=== PATIENT | female | born 1930 | race Caucasian/White ===

== ENCOUNTER → 2017-10-22 | Outpatient (CLI) | payer MEDICARE, OTHER ==
[~2017-10-22] MED LIST: ADVAIR HFA 230M12 GM INH; ALDACTONE25 MG PO; ALDACTONE50 MG PO; ALENDRONATE SOD10 MG PO; ALLOPURINOL 10100 M1 PO; ALLOPURINOL 10100 M2 PO; ALLOPURINOL 10100 M3 PO; ALLOPURINOL 30300 M3; AMPICILLIN PO; APAP500 PO; ARTIFICIALS TEA30 ML OP; ASPIR 8181 M1 PO; ASPIR 8181 MG PO; ASPIRIN EC81 M1 PO; AUGMENTIN 875875 MG PO; BACTRIM DS TAB1 EACH; BENADRYL25 MG PO; BISACODYL5 MG PO; CEFUROXIME250 MG PO; CEPHALEXIN 250250 M1 PO; CIPRO250 M1; CIPRO250 M1 PO; CIPROFLOXACIN500 M3; COLCHICINE 0.60.6 M1; COUMADIN 2 MG TA2 M1 PO; COUMADIN 2.5MG2.5 M1 PO; COUMADIN 5 MG TA5 M1; COUMADIN 5 MG TA5 M1 PO; D3 DOTS2000 UNIT PO; DIPHENHYDRAM50 MG/M2 IV PUSH; DULCOLAX5 MG PO; DUONEB 2.5-0.5 M3 ML INH; DURAGESIC1 EAC2 TRANSDERM; ELIQUIS2.5 MG PO; ENDOCET 5-3251 EACH PO; ENOXAPARIN100 MG/11 SUBQ; FENTANYL PA25 MCG/HR TRANSDERM; FISH OIL 1,0001 EAC8 PO; FISH OIL 1,001000 M2 PO; FLAGYL500 MG; FLOMAX0.4 MG PO; FLUZONE 2045 MCG/011; FOLIC ACID1 MG PO; FUROSEMIDE 20 M20 MG PO; GABAPENTIN 100100 MG PO; HYDROCODON-ACE1 EA11 PO; HYDROCODON-ACE1 EAC7 PO; KLOR-CON 1010 MEQ PO; LASIX 20 MG TAB20 MG PO; LASIX 40 MG TAB40 M2 IV PUSH; LISINOPRIL; LISINOPRIL-HCT1 EAC1 PO; LOPRESSOR100 M1 IV PUSH; MEDROL DOSPAK21 TA1; MEGESTROL40 MG/1 M1 PO; METHOTREXATE 22.5 MG PO; MILK OF MA2400 MG/10 PO; MILLIPRED DP5 M1 PO; MIRALAX17 GM PO; MSL20MG/ML IV PUSH; NAPROXEN375 MG PO; NITROFURANTOIN25 MG PO; NORCO 5-325 TA1 EACH PO; NORMAL SALINE FL5 ML IV PUSH; NOVOLOG100 UNIT/1 SUBQ; Naproxen PO; ONDANSETRON HCL4 M2 IV PUSH; OXYCODONE HCL 55 MG PO; OXYCONTIN10 M1 PO; PATANASE30.5 GM; PATANASE30.5 GM INH; PERCOCET 5-3251 EACH; PERCOCET 5-3251 EACH PO; PERCOCET PO; PNEUMOVAX25 MCG/0.5; PREDNISONE; PREDNISONE 1 MG1 M1; PREDNISONE 10 M10 MG PO; PREDNISONE 20 M20 MG PO; PREDNISONE 5 MG5 M1 PO; PREDNISONE 5 MG5 MG PO; PRINIVIL5 MG PO; PROAIR HFA8.5 GM INH; PROTONIX40 M1 IV PUSH; PROTONIX40 M1 PO; PROVIGIL 200 M200 M1 PO; ROXICODONE5 M2 PO; SENNA-DOCUSATE1 EACH PO; SENOKOT-S1 TA1 PO; SERTRALINE HCL50 MG PO; SIMVASTATIN10 MG PO; SODIUM CHLORID500 M1 IV; SODIUM CHLORIDE50 M3 IV; SOLU-MEDRO40 MG/1 M2 IV PUSH; TPN ELECTROLYTE20 M1 IV; TRAMADOL 50 MG50 MG; TRAMADOL 50 MG50 MG PO; VENTOLIN HFA 1818 GM INH; VITAMIN B-12500 MCG PO; VITAMIN B12 PO; VITAMIN D-32000 UNIT PO; WOMAN'S LAXATIVE5 M1 PO; XANAX 0.25 MG0.25 MG PO; XARELTO10 MG PO; ZOCOR; ZOCOR 10 MG TAB10 MG PO; ZOSYN 3.373.375 GM/1 IV; [UNRECOGNIZED DRUG - OTHER] TP
[2017-10-22 11:22] LABS: CALCIUM 9.5 mg/dL (8.5-10.1); CREATININE 1.7 mg/dL (0.6-1.3); POTASSIUM 4.1 mmol/L (3.5-5.1)
[2017-10-22 11:28] LABS: % SATURATION 26 % (20-39); IRON 84 ug/dL (50-175)
[2017-10-22 11:35] LABS: ALBUMIN 3.9 g/dL (3.4-5.0); MAGNESIUM 1.9 mg/dL (1.8-2.4); TOTAL BILIRUBIN 0.5 mg/dL (<0.1-1.0); TOTAL PROTEIN 7.4 g/dL (6.4-8.2)
== END ==
LOC: M.LAB 10:35
PROVIDERS: Internal Medicine
DX: I12.9 Hypertensive chronic kidney disease with stage 1 through stage 4 chronic kidney disease, or unspecified chronic kidney disease (principal); N18.3 Chronic kidney disease, stage 3 (moderate); N39.0 Urinary tract infection, site not specified; I25.10 Atherosclerotic heart disease of native coronary artery without angina pectoris; E66.9 Obesity, unspecified; E78.5 Hyperlipidemia, unspecified; E43 Unspecified severe protein-calorie malnutrition

== ENCOUNTER → 2018-03-10 | Outpatient (CLI) | payer MEDICARE, OTHER | LOC: M.CT 10:09 → M.RAD 10:09 | DX: N18.3 Chronic kidney disease, stage 3 (moderate) (principal); K57.30 Diverticulosis of large intestine without perforation or abscess without bleeding; N20.0 Calculus of kidney; I70.90 Unspecified atherosclerosis; I49.5 Sick sinus syndrome; M12.30 Palindromic rheumatism, unspecified site; R63.5 Abnormal weight gain ==

== ENCOUNTER → 2019-10-26 | Outpatient (CLI) | payer MEDICARE, OTHER ==
--- NOTE | 2019-10-26 16:29 | CARDNUC ---
[place] [address] CARDIAC NUCLEAR IMAGING REPORT Name: ANDREAS STALLINGS Room: [facility]#: [id number] Admission: 10/26/19 Attend Phys: Mian Ewing, Discharge: Date of : 32 Date of Service: 10/26/19 1629 Report #: [id number] THIS REPORT FOR: //name// APPROVED REPORT Study performed: 10/26/2019 07:30:00 Indication: Dyspnea Patient Location: Out-Patient Stress Tech: Meli Quiroz Stress Nurse: Noreen Loo RN Ht: 5 ft 4 in Wt: 165 lbs BSA: 1.80 m2 BMI: 28.31 Medical History Medical History: paf, sss, pacemaker, hyperlipidemia, hypertension Medications: eliquis, lasix, klor-con Allergies: esomeprazole, iodine,omeprazole, shell-fish Cardiac Risk Factors: hyperlipidemia, hypertension, family hx Previous Cardiac Procedures: pacemaker Exercise History: Sedentary Resting Data Rest SPECT myocardial perfusion imaging was performed in supine position 30 minutes following the intravenous injection of 11.6 mCi of Tc-99m Sestamibi. Time of rest injection: 08:00 The images were gated to evaluate regional wall motion and calculate left ventricular ejection fraction. Administration Route: IV Administration Site: Left Arm Pharmacologic Stress Pharmacologic stress test was performed by injecting Regadenoson 0.4 mg IV push over 10-15 seconds immediately followed by the intravenous injection of 35.3 mCi of Tc-99m Sestamibi. Time of stress injection: 09:20 Administration Route: IV Administration Site: Left Arm Heart Rate at time of stress injection: 75 bpm. Gated Stress SPECT was performed 45 minutes [place] [address] CARDIAC NUCLEAR IMAGING REPORT Name: ANDREAS STALLINGS Room: [facility]#: [id number] Admission: 10/26/19 Attend Phys: Mian Ewing, Discharge: Date of : 31 Date of Service: 10/26/19 1629 Report #: [id number] The images were gated to evaluate regional wall motion and calculate left ventricular ejection fraction. Stress Test Details Stress Test: Pharmacologic stress testing performed using 0.4 mg of regadenoson per 5 mL given IV over 10 seconds. Reason for pharmacologic stress test: physical limitation. HR Max Heart Rate (APMHR): 133 bpm Resting HR: 66 bpm Target HR (85% APMHR): 113 bpm Max HR Achieved: 90 bpm % of APMHR: 67 Recovery HR: 79 bpm BP Resting BP: 127/80 mmHg Max BP: 198/79 mmHg Recovery BP: 192/78 mmHg ECG Resting ECG: Sinus Rhythm with ventricular pacing Stress ECG: Sinus Rhythm with ventricular pacing ST Change: None Recovery ECG: Sinus Rhythm with ventricular pacing Recovery ST Change: None Clinical Reason for Termination: Completed protocol Exercise duration: 0 min sec Exercise capacity: 1 METs The patient tolerated Lexiscan infusion without significant symptoms. Nurse Comments pt uses walker and cannot walk on treadmill Stress ECG Conclusion The baseline 12-lead EKG shows sinus rhythm with ventricular pacing. EKGs obtained during and post Lexiscan infusion showed sinus rhythm with ventricular pacing. Study Quality Study: Good Artifact: No artifact Study Data At rest, the left ventricular ejection fraction was 74%.. [place] [address] CARDIAC NUCLEAR IMAGING REPORT Name: ANDREAS STALLINGS Room: [facility]#: [id number] Admission: 10/26/19 Attend Phys: Mian Ewing, Discharge: Date of : 31 Date of Service: 10/26/19 1629 Report #: [id number] Post stress, the left ventricular ejection was 85%.. TID = 0.90. Perfusion Perfusion images obtained at rest and post Lexiscan stress showed uniform uptake of the radioisotope throughout the myocardium without defect. Wall Motion Normal left ventricular wall motion. Nuclear Conclusion ECG Findings: non-diagnostic Clinical Findings: negative for ischemia Nuclear Findings: negative for ischemia Exercise Capacity: not assessed Left Ventricular Function: normal Risk Study: low Perfusion images showed no defect to suggest infarct or ischemia. Left ventricular systolic function appears normal on gated studies. This is a low risk study. <Conclusion> The baseline 12-lead EKG shows sinus rhythm with ventricular pacing. EKGs obtained during and post Lexiscan infusion showed sinus rhythm with ventricular pacing. <ELECTRONICALLY SIGNED> By: Mian Ewing MD, FACC 10/26/19 1629 1629 1629 Mian Ewing MD, FACC /INF
== END ==
LOC: M.NUC 10-14 16:36
DX: R06.09 Other forms of dyspnea (principal); E78.5 Hyperlipidemia, unspecified; I10 Essential (primary) hypertension; Z95.0 Presence of cardiac pacemaker; Z79.899 Other long term (current) drug therapy; Z88.8 Allergy status to other drugs, medicaments and biological substances

== ENCOUNTER → 2019-10-28 | Outpatient (CLI) | payer MEDICARE, OTHER | LOC: M.ULTRA 10-24 13:14 | DX: I65.23 Occlusion and stenosis of bilateral carotid arteries (principal); E78.2 Mixed hyperlipidemia; I10 Essential (primary) hypertension; I48.0 Paroxysmal atrial fibrillation; M48.061 Spinal stenosis, lumbar region without neurogenic claudication; I70.0 Atherosclerosis of aorta; M41.85 Other forms of scoliosis, thoracolumbar region; M25.78 Osteophyte, vertebrae; M51.36 Other intervertebral disc degeneration, lumbar region ==

== ENCOUNTER → 2019-11-14 | Outpatient (CLI) | payer MEDICARE, OTHER | LOC: M.CT 11-01 10:14 | DX: I65.23 Occlusion and stenosis of bilateral carotid arteries (principal); M51.86 Other intervertebral disc disorders, lumbar region; M41.86 Other forms of scoliosis, lumbar region; M48.061 Spinal stenosis, lumbar region without neurogenic claudication; Z98.1 Arthrodesis status ==

== ENCOUNTER 2020-01-20 08:24 | Inpatient (IN) | payer MEDICARE, OTHER ==
[~2020-01-20] VITALS: Ht 162.6 cm; Wt 75.7 kg
--- NOTE | ~2020-01-20 | OP ---
[facility] [address] [place] [address] OPERATIVE REPORT Name: CHANDRAKANTANDREAS Red Room: [address] IN .R.#: [id number] Admission: 01/20/20 Attend Phys: Gabby Elise Discharge: Date of : 31 Report #: [id number] THIS REPORT FOR: //name// cc: Mike Guidry MD, David L. MD ~ THIS REPORT FOR: //name// CC: Mike Jeong DATE OF SERVICE: 01/20/2020 PREOPERATIVE DIAGNOSIS: Severe left internal carotid artery stenosis. POSTOPERATIVE DIAGNOSIS: Severe left internal carotid artery stenosis. PROCEDURES: 1. Left carotid endarterectomy with patch angioplasty. 2. Intraoperative ultrasound with interpretation. SURGEON: Umair Luna MD CHECK CLERK: AMY Summers. COMPLICATIONS: None. ESTIMATED BLOOD LOSS: 100 mL. SPECIMEN: Plaque. ANESTHESIA: General. INDICATIONS FOR PROCEDURE: The patient is a very pleasant 89-year-old white female who has severe stenosis of her left internal carotid artery. We have recommended carotid endarterectomy at this time. Informed consent was obtained from the patient with risks including but not limited to bleeding, infection, need for further surgery, pain, , heart attack, stroke, cranial nerve injury. The patient understood these risks and was agreeable to proceed. DESCRIPTION OF PROCEDURE: The patient was taken to the OR and placed in supine position. After adequate general anesthesia was initiated, timeout was performed. The patient's left neck and chest were prepped and draped in usual sterile fashion. The patient received appropriate perioperative antibiotics. The patient was systemically heparinized throughout the critical portions of the procedure. I created a transverse incision in [place] [address] OPERATIVE REPORT Name: ANDREAS STALLINGS Room: [address] IN [facility].#: [id number] Admission: 01/20/20 Attend Phys: Gabby Elise Discharge: Date of : 31 Report #: [id number] and blunt dissections were carried down along the anterior border of the sternocleidomastoid muscle. I divided the facial vein. I entered the carotid sheath. Dissection was very difficult as the patient had a stiff neck and would not turn. This made her carotid bifurcation artificially high. I carefully dissected out the common carotid artery as well as branches of internal and external carotid artery. I was able to pull the bifurcation down into the incision to work on it safely. I was able to dissect out to soft internal carotid artery, that was clampable. She had severe plaque throughout. I heparinized the patient at this point in time. I injected the bulb with 1% lidocaine. I then clamped the carotid artery. I created a longitudinal arteriotomy from the common carotid artery onto the internal carotid artery. I placed a 12 shunt without difficulty. I performed endarterectomy in standard fashion using a [place] elevator and a pair of pickups. I performed eversion endarterectomy of the external carotid artery. I did have to tack down the flap leading edge leading into the internal carotid artery using 7-0 Prolene suture. I then used a bovine pericardial patch and a running 6-0 Prolene suture to close my arteriotomy. I removed the shunt prior to finishing closing the vessel. Upon completion, I had adequate hemostasis and excellent blood flow into the internal and external carotid arteries. I performed intraoperative ultrasound with following findings. FINDINGS ON ULTRASOUND: 1. Normal waveform velocity identified in the common and internal carotid arteries. 2. Patent flow identified in external carotid artery on color flow imaging. 3. No flaps or defects identified on downey-scale imaging. I corrected the heparin with protamine. I controlled bleeding as needed with electrocautery, ties, clips and Anni. I irrigated the wound with antibiotic saline, closed the wound in multiple layers using 2-0 Vicryl, 3-0 Vicryl and Monocryl for the skin. Incision was dressed with Dermabond. The patient tolerated the procedure well and was taken alert and awake to recovery room in good condition, neurologically intact without evidence of TIA or stroke. By: 1252 [id number] Luna MD /michel
[~2020-01-20 08:24] MED LIST changes: +BACTRIM 400-801 EACH PO; +TYLENOL325 MG PO
[2020-01-20 09:27] VITALS: BP 142/65
[2020-01-20 09:33] LABS: HEMATOCRIT 41.9 % (37.0-47.0); HEMOGLOBIN 13.9 gm/dL (12.0-15.0); MCH 29.9 pg (26.0-34.0); MCHC 33.2 g/dL (28.0-37.0); MPV 8.4 fl. (7.2-11.1); RBC 4.66 mil/uL (4.20-5.00); WBC 8.9 thou/uL (4.0-11.0)
[2020-01-20 09:43] LABS: CALCIUM 9.1 mg/dL (8.5-10.1); CREATININE 1.6 mg/dL (0.6-1.3); POTASSIUM 3.5 mmol/L (3.5-5.1)
--- NOTE | 2020-01-20 16:49 | EKG ---
[place] [address] ELECTROCARDIOGRAM REPORT Name: ANDREAS STALLINGS Room: [place] [address] ADM IN M.R.#: [id number] Admission: 01/20/20 Attend Phys: Jerome Jeong Discharge: Date of : 31 Date of Service: 01/20/20 0851 Report #: [id number] THIS REPORT FOR: //name// [facility] Test Date: 2020-01-20 Test Time: 08:51:03 Pat Name: ANDREAS CHANDRAKANT Department: Room: [place] [address] Gender: F Jig Builder Helper: : 1930 Requested By: Umair Luna Order Number: [id number] Rhonda MD: Kaz Agrawal Measurements Intervals [place] Rate: 63 P: 51 [place]: 161 QRS: -41 QRSD: 126 T: 27 QT: 439 QTc: 450 Interpretive Statements Sinus rhythm Nonspecific IVCD with LAD Left ventricular hypertrophy Anterior Q waves, possibly due to LVH Nonspecific T abnormalities, lateral leads Compared to ECG 11/09/2015 21:45:11 Intraventricular conduction delay now present Left ventricular hypertrophy now present Q waves now present T-wave abnormality now present Electronically Signed On 01-20-2020 16:48:35 CDT by Kaz Agrawal [email or web address] <ELECTRONICALLY SIGNED> By: Kaz Agrawal MD, [facility] 01/20/20 1648 0851 Kaz Agrawal MD, [facility] /EPI
[2020-01-20 20:46] VITALS: BP 117/97
[2020-01-20 21:00] VITALS: BP 159/70
[2020-01-20 22:00] VITALS: BP 155/62
[2020-01-20 23:00] VITALS: BP 177/60
[2020-01-21] VITALS (14 sets, daily range): BP systolic 101–157; BP diastolic 45–74
[2020-01-21 04:40] LABS: HEMATOCRIT 38.8 % (37.0-47.0); MCH 29.8 pg (26.0-34.0); MCHC 33.5 g/dL (28.0-37.0); MCV 88.9 fL (80.0-100.0); MPV 7.5 fl. (7.2-11.1); RBC 4.36 mil/uL (4.20-5.00); RDW-CV 14.9 % (10.5-14.5); WBC 14.1 thou/uL (4.0-11.0)
[2020-01-21 05:00] LABS: CALCIUM 8.4 mg/dL (8.5-10.1); CREATININE 1.2 mg/dL (0.6-1.3); POTASSIUM 4.4 mmol/L (3.5-5.1)
--- NOTE | 2020-01-21 14:13 | NUR ---
PT DISCHARGED HOME. COPY OF DISCHARGE INSTRUCTIONS INCLUDING POST SURGICAL INSTRUCTIONS TO PT WITH EXPLAINATION. IV ACCESS X2 REMOVED. PT TAKEN PER WHEELCHAIR TO HER SISTERS' PRIVATE VEHICLE.
== END 2020-01-21 14:39 | disposition home or self-care (01) | DRG 38 ==
LOC: M.TBA 08:24 → M.ICU 08:24 → M.SUR 09:40 → M.PRE 11:15 → EDSTATUS 14:04 → M.PRE 14:06 → M.ICU 18:17
PROVIDERS: Surgery Vascular Surgery; ADMIT Internal Medicine
PROC: 03CL0ZZ Extirpation of Matter from Left Internal Carotid Artery, Open Approach (ICD-10-PCS; principal; 2020-01-20)
PROC: 03UL0KZ Supplement Left Internal Carotid Artery with Nonautologous Tissue Substitute, Open Approach (ICD-10-PCS; principal; 2020-01-20)
DX: I65.22 Occlusion and stenosis of left carotid artery (principal); N39.0 Urinary tract infection, site not specified; N17.9 Acute kidney failure, unspecified; Z79.899 Other long term (current) drug therapy; E86.0 Dehydration; E78.5 Hyperlipidemia, unspecified; I10 Essential (primary) hypertension; M81.0 Age-related osteoporosis without current pathological fracture; I49.5 Sick sinus syndrome; M19.90 Unspecified osteoarthritis, unspecified site; I25.10 Atherosclerotic heart disease of native coronary artery without angina pectoris; R42 Dizziness and giddiness; I27.20 Pulmonary hypertension, unspecified; Z96.653 Presence of artificial knee joint, bilateral; M54.5 Low back pain; G89.29 Other chronic pain; Z86.010 Personal history of colon polyps; Z95.0 Presence of cardiac pacemaker; Z98.49 Cataract extraction status, unspecified eye; Z93.3 Colostomy status; Z86.718 Personal history of other venous thrombosis and embolism; Z79.01 Long term (current) use of anticoagulants; Z88.8 Allergy status to other drugs, medicaments and biological substances; Z91.041 Radiographic dye allergy status; Z91.013 Allergy to seafood; Z79.2 Long term (current) use of antibiotics

== ENCOUNTER → 2020-10-26 | Outpatient (CLI) | payer MEDICARE, OTHER | LOC: M.RAD 11:46 | PROVIDERS: ATTEND Internal Medicine | DX: R06.00 Dyspnea, unspecified (principal) ==

== ENCOUNTER → 2021-01-15 | Outpatient (CLI) | payer MEDICARE, OTHER ==
[~2021-01-15] VITALS: Ht 162.6 cm; Wt 65.8 kg
[2021-01-15] VITALS (12 sets, daily range): BP systolic 89–127; BP diastolic 43–84
[~2021-01-15] MED LIST changes: +BACTRIM DS TAB1 EAC1 PO; +ELIQUIS5 MG PO; +VITAMIN D3-ALO1 EACH PO
[2021-01-15 13:22] LABS: HEMATOCRIT 43.4 % (37.0-47.0); HEMOGLOBIN 14.2 gm/dL (12.0-15.0); MCH 29.6 pg (26.0-34.0); MCHC 32.6 g/dL (28.0-37.0); MPV 7.4 fl. (7.2-11.1); RBC 4.77 mil/uL (4.20-5.00); RDW-CV 15.4 % (10.5-14.5); WBC 11.6 thou/uL (4.0-11.0)
[2021-01-15 13:28] LABS: CALCIUM 9.9 mg/dL (8.5-10.1); CREATININE 1.5 mg/dL (0.6-1.3); POTASSIUM 4.3 mmol/L (3.5-5.1)
[2021-01-15 13:32] LABS: APTT 25.8 Seconds (25.0-31.3); PROTIME 10.4 Seconds (9.20-11.50)
[2021-01-15 13:33] LABS: ALBUMIN 3.4 g/dL (3.4-5.0); TOTAL BILIRUBIN 0.4 mg/dL (<0.1-1.0); TOTAL PROTEIN 7.4 g/dL (6.4-8.2)
--- NOTE | 2021-01-15 17:55 | EKG ---
[place] [address] ELECTROCARDIOGRAM REPORT Name: ANDREAS STALLINGS Room: [facility]#: [id number] Admission: 01/15/21 Attend Phys: Mian Ewing, Discharge: Date of : 31 Date of Service: 01/15/21 1333 Report #: [id number] THIS REPORT FOR: //name// [facility] Test Date: 2021-01-15 Test Time: 13:33:43 Pat Name: ANDREAS STALLINGS Department: Room: Gender: F Hspt Tutor: : 1930 Requested By: Mian Ewing Order Number: [id number] Reading MD: Mian Ewing Measurements Intervals [place] Rate: 65 P: 24 SD: 163 QRS: -14 QRSD: 78 T: 10 QT: 373 QTc: 388 Interpretive Statements Sinus rhythm Low voltage, precordial leads Abnormal R-wave progression, early transition Compared to ECG 01/20/2020 08:51:03 Low QRS voltage now present Intraventricular conduction delay no longer present Left ventricular hypertrophy no longer present Q waves no longer present T-wave abnormality no longer present Electronically Signed On 01-15-2021 17:55:28 SALES OFFICE ADMINISTRATOR by Mian Ewing [email or web address] <ELECTRONICALLY SIGNED> By: Mian Ewing MD, [facility] 01/15/21 1755 1333 1333 Mian Ewing MD, [facility] /EPI
--- NOTE | 2021-01-15 17:56 | EKG ---
[place] [address] ELECTROCARDIOGRAM REPORT Name: ANDREAS STALLINGS Room: [facility]#: [id number] Admission: 01/15/21 Attend Phys: Mian Ewing, Discharge: Date of : 31 Date of Service: 01/15/21 1543 Report #: [id number] THIS REPORT FOR: //name// [facility] Test Date: 2021-01-15 Test Time: 15:43:42 Pat Name: ANDREAS CHANDRAKANT Department: Room: Gender: F Logistics Coordinator: JHONEYGUSTAVO : 1930 Requested By: Mian Ewing Order Number: [id number] Reading MD: Mian Ewing Measurements Intervals [place] Rate: 141 P: [place]: QRS: 7 QRSD: 74 T: 25 QT: 304 QTc: 466 Interpretive Statements Atrial fibrillation with rapid V-rate Abnormal R-wave progression, early transition ST depression, probably rate related Compared to ECG 01/15/2021 13:33:43 ST (T wave) deviation now present Sinus rhythm no longer present Electronically Signed On 01-15-2021 17:56:33 FENCE SUPERVISOR by Mian Ewing [email or web address] <ELECTRONICALLY SIGNED> By: Mian Ewing MD, FACC 01/15/21 1756 1543 1543 Mian Ewing MD, FACC /EPI
--- NOTE | 2021-01-22 12:52 | CARD ---
[address] [address] CARDIAC CATH REPORT Name: ANDREAS STALLINGS Room: [facility]#: [id number] Admission: 01/15/21 Attend Phys: Mian Ewing MD Discharge: Date of : 31 Report #: [id number] THIS REPORT FOR: cc: Star Briones MD, Meng MD ~ Mian Ewing MD [facility] APPROVED REPORT Study performed: 01/15/2021 13:58:48 Patient Status: Out-Patient Room #: Event Personnel: Michael Colby RTR Monitor, Rina Santamaria RN RN, Jacqueline Berg RTR Scrub, Mian Ewing Linen Sorter Exam: Insertion of Dual Chamber Permanent Pacemaker The patient is a 89 year-old female with a history of . Conscious Sedation Start time: 1444 End Time: 1458 Fentanyl 25 mcg Versed 1 mg Implanted Devices: Medtronic, model number W3 DR 01, serial number [id number] dual-chamber pulse generator. Explanted Devices: Guidant Altrua was 60, model number S603, serial #[id number] dual-chamber pulse generator. Procedure The patient underwent informed consent. We discussed the details of the procedure including the risks, which include, but not limited to bleeding, infection, vascular damage, cardiac perforation, and pneumothorax. She understood these risks and was willing to proceed. As such, she was brought to the EP/Cardiac Catheterization laboratory in a fasting and sedated state and prepped and draped in a The patient underwent conscious sedation, with no related complications. The patient was brought to the EP/Cardiac Catheterization laboratory and the left chest and shoulder were prepped and draped in a sterile manner. During this case, Fluoroscopy and no contrast were used for imaging. IV conscious sedation was used throughout procedure with appropriate monitoring and was performed in the presence of a registered nurse who was an independent trained [place] [address] CARDIAC CATH REPORT Name: ANDREAS STALLINGS Room: [facility]#: [id number] Admission: 01/15/21 Attend Phys: Mian Ewing MD Discharge: Date of : 31 Report #: [id number] performing the procedure. The left subclavian region was infiltrated with 2% Lidocaine with Epinephrine subcutaneous anesthesia. A transverse incision was made in the left upper chest cavity. Capturing and sensing thresholds were verified. Electrode Parameters P Wave: 2.1 mV R Wave: 5.4 mV Ventricular Threshold: 1.2 V at 0.60 ms. Atrial Resistance: 342 ohms Ventricular Resistance: 475 ohms Generator Change The generator change was then secured using sutures. The subcutaneous pocket was irrigated with ancef antibiotic solution.The lead was attached to the appropriate receptacle on the new pulse generator and setscrews firmly tightened to insure adequate contact and stability. The lead and pulse generator were placed into the subcutaneous pocket. Sharp and sponge counts were confirmed to be correct. At this time the pocket was closed subcutaneously with a 2.0 Vicryl and the skin was closed with a 4.0 Vicryl. The operative site was dressed in sterile fashion with steri strips and the patient was transferred to the floor in stable condition. Complications The patient tolerated the procedure well and there were no complications associated with the procedure. Findings Specimens Removed: No Conclusion 1. Dual-chamber pacemaker generator at elective replacement. 2. Successful replacement of dual-chamber pacemaker generator. Recommendations 1. Follow-up site check in 1 week. 2. Follow-up device interrogation 1 to 2 months. <ELECTRONICALLY SIGNED> By: Mian Ewing MD, FACC 01/22/21 1252 1252 1252Michaepiedad Ewing MD, FACC /INF
== END | disposition home or self-care (01) ==
LOC: M.CL 12:50
PROVIDERS: ATTEND Internal Medicine Cardiovascular Disease
DX: Z45.010 Encounter for checking and testing of cardiac pacemaker pulse generator [battery] (principal); I49.5 Sick sinus syndrome; I25.10 Atherosclerotic heart disease of native coronary artery without angina pectoris; E78.5 Hyperlipidemia, unspecified; M19.90 Unspecified osteoarthritis, unspecified site; R42 Dizziness and giddiness; M54.5 Low back pain; G89.29 Other chronic pain; N39.0 Urinary tract infection, site not specified; Z98.890 Other specified postprocedural states; Z79.899 Other long term (current) drug therapy; Z86.718 Personal history of other venous thrombosis and embolism; Z79.01 Long term (current) use of anticoagulants; Z96.653 Presence of artificial knee joint, bilateral; Z88.8 Allergy status to other drugs, medicaments and biological substances; Z91.041 Radiographic dye allergy status

== ENCOUNTER 2021-02-22 11:04 | Inpatient (IN) | payer MEDICARE, OTHER ==
[~2021-02-22] VITALS: Ht 162.6 cm; Wt 84.6 kg
[2021-02-22 11:16] VITALS: BP 124/77
[2021-02-22] MEDS ORDERED: SYNTHROID25 MC1 PO (11:30)
[2021-02-22] MEDS ORDERED: RAYOS5 MG PO (11:30)
[2021-02-22 13:44] LABS: ABSOLUTE BASOPHILS 0.1 thou/uL (0.0-0.2); ABSOLUTE EOSINOPHILS 0.1 thou/uL (0.0-0.7); ABSOLUTE LYMPHOCYTES 1.7 thou/uL (0.8-5.3); ABSOLUTE MONOCYTES 1.1 thou/uL (0.0-1.2); ABSOLUTE NEUTROPHILS 7.6 thou/uL (1.6-8.1); EOSINOPHILS 1.2 %; HEMATOCRIT 39.8 % (37.0-47.0); HEMOGLOBIN 12.9 gm/dL (12.0-15.0); MCH 29.4 pg (26.0-34.0); MCHC 32.5 g/dL (28.0-37.0); MCV 90.4 fL (80.0-100.0); MPV 7.4 fl. (7.2-11.1); NUCLEATED RBCS 0 /100WBC; PLATELET COUNT* 300 thou/uL (150-400); POLYS 71.8 %; RDW-CV 15.1 % (10.5-14.5); WBC 10.6 thou/uL (4.0-11.0)
[2021-02-22 13:55] LABS: CREATININE 1.4 mg/dL (0.6-1.3)
[2021-02-22 13:59] LABS: TOTAL BILIRUBIN 0.5 mg/dL (<0.1-1.0); TOTAL PROTEIN 7.6 g/dL (6.4-8.2)
[2021-02-22 16:00] VITALS: BP 114/54
[2021-02-22 16:20] LABS: URINE BILIRUBIN NEGATIVE (Negative); URINE BLOOD NEGATIVE (Negative); URINE CLARITY CLEAR; URINE COLOR YELLOW; URINE GLUCOSE-RANDOM NEGATIVE (Negative); URINE KETONES NEGATIVE (Negative); URINE LEUKOCYTES-REFLEX TRACE (Negative); URINE NITRITE-REFLEX NEGATIVE (Negative); URINE PROTEIN NEGATIVE (Negative); URINE UROBILINOGEN 0.2 E.U./dl (0.2-1.0)
[2021-02-22 16:32] LABS: BACTERIA-REFLEX 1-9 Few /HPF (None Seen); CASTS None Seen /LPF (None Seen); SQUAMOUS 0-3 Few /LPF (0-3); URINE RBC 0-2 Rare /HPF (0-2); URINE WBC-REFLEX 0-5 Rare /HPF (0-5)
[2021-02-22 16:33] LABS: CRYSTALS None Seen /LPF (None Seen)
[2021-02-22 17:15] VITALS: BP 126/80
[2021-02-22 20:00] VITALS: BP 112/50
[2021-02-23 00:15] VITALS: BP 106/43
[2021-02-23 04:09] VITALS: BP 112/60
[2021-02-23 08:00] VITALS: BP 138/75
[2021-02-23 12:16] VITALS: BP 133/73
--- NOTE | 2021-02-23 12:57 | CON ---
[address] [address] CONSULTATION Name: ANDREAS STALLINGS Room: [address] IN M.R.#: [id number] Admission: 02/22/21 Attend Phys: Amie St MD Discharge: Date of : 31 Report #: [id number] THIS REPORT FOR: cc: Star Briones MD, Meng MD [place], Roxane S. DO ~ DATE OF SERVICE: 02/23/2021 HISTORY OF PRESENT ILLNESS: The patient is an 89-year-old female who when she woke up Thursday morning noticed that her left lower extremity was weak. It was difficult for her to get out of bed. She had to ask her sister for help. In addition to the weakness in the leg, she noticed tingling across her abdomen and had pain in the leg as well. The pain in the leg is from the left hip down into the leg. She states there has been perhaps some mild improvement in her symptoms since they began. The patient has been inactive for at least 1 month and has been doing quite a bit of sitting in a chair. Reviewing the note from Dr. St, it states that she said to Dr. St that she has had paresthesias in both lower extremities for a long period of time, the left is worse than the right. She also has tingling in her hands which she admitted to me as well. She stated that 3 years ago, she was diagnosed with carpal tunnel syndrome. PAST MEDICAL HISTORY: Sick sinus syndrome, hyperlipidemia, arthritis, coronary artery disease, stress incontinence, pulmonary hypertension, DVT, plantar calcaneal spur, diverticulitis, compression fracture in thoracic and lumbar spine, chronic low back pain, small cell cancer of the head. PAST SURGICAL HISTORY: Pacemaker, bilateral knee replacements, colostomy, kyphoplasty x 3, Mohs procedure, cataract extraction. MEDICATIONS AT HOME: Eliquis 5 mg b.i.d., Bactrim 1 tablet b.i.d., prednisone at bedtime, levothyroxine 25 mcg daily, B12 500 mcg twice a day, potassium 20 mEq daily, furosemide 20 mg daily, gabapentin 200 mg at bedtime, vitamin D daily, Flomax 0.4 mg daily, and Tylenol p.r.n. ALLERGIES: IODINE AND SHRIMP. PHYSICAL EXAMINATION: VITAL SIGNS: Temperature 36.4, pulse rate 72, respiratory rate 18, blood pressure 138/75, bedside pulse oximetry 92%. NEUROLOGIC: Cranial nerves 2-12 are grossly intact. Motor exam demonstrates proximal upper extremity weakness and in the lower extremities, the patient has generalized weakness. She can just barely bend her knees[place] [address] CONSULTATION Name: ANDREAS STALLINGS Room: [address] IN M.R.#: [id number] Admission: 02/22/21 Attend Phys: Amie St MD Discharge: Date of : 31 Report #: [id number] symmetrical weakness in both lower extremities. Reflexes are absent in the upper and lower extremities. Plantar responses are mute. Coordination demonstrates no evidence of dysmetria. This is difficult to do because she has bilateral shoulder pain. Sensory exam demonstrates decreased light touch to about the hips. LABORATORY DATA: Hematology, white blood cell count 10.6, hemoglobin 12.9, hematocrit 39.8, MCV 90.4, platelet count 300,000. Urinalysis, trace leukocyte esterase. Chemistry: Sodium 138, potassium 4, chloride 102, carbon dioxide 27, BUN 24, creatinine 1.4, glucose 111. Liver functions normal. B12 is over 3000. TSH 0.952. IMAGING STUDIES: CT head unremarkable with the exception of mild atrophic changes and nonspecific white matter disease. CT lumbar spine shows severe spinal stenosis at L3-L4. CT of the pelvis unremarkable. IMPRESSION: This patient already has severe spinal stenosis at L3-L4. Given her history of kyphoplasty, I am ordering a CT scan of the thoracic spine as I do not know if she can have an MRI of the thoracic spine with her pacemaker and the reason for this is because she stated that she had paresthesias of the trunk and so I think looking above the level of the lumbar spine needs to be done. Now whether or not this patient is any kind of surgical candidate is a different story, but I do think this requires further investigation. The patient may also have an underlying peripheral neuropathy. She has a longstanding history of tingling of her hands and might benefit as an outpatient from an EMG of one arm and leg. We may also need to do a CT scan of the cervical spine depending on what we find in the thoracic spine. The patient has already had a B12 level, so B12 deficiency is not an issue here and in fact whatever supplement she is taking with B vitamin that she should stop taking it because her level is 3000. I thank you for your kind referral of the patient and we will continue to follow her with you. <ELECTRONICALLY SIGNED> By: Saira Bueno DO 02/23/21 1257 0920 1007Saira Bueno DO /nt
[2021-02-23 16:27] VITALS: BP 121/61
[2021-02-23 20:00] VITALS: BP 122/50
[2021-02-24 00:13] VITALS: BP 122/57
[2021-02-24 04:20] LABS: HEMOGLOBIN 11.8 gm/dL (12.0-15.0); MCH 28.9 pg (26.0-34.0); MCV 90.2 fL (80.0-100.0); MPV 7.9 fl. (7.2-11.1); RBC 4.1 mil/uL (4.20-5.00); WBC 12.1 thou/uL (4.0-11.0)
[2021-02-24 04:26] LABS: CALCIUM 9.2 mg/dL (8.5-10.1); CREATININE 1.3 mg/dL (0.6-1.3); POTASSIUM 4.3 mmol/L (3.5-5.1)
[2021-02-24 05:03] VITALS: BP 119/59
[2021-02-24 08:00] VITALS: BP 129/72
[2021-02-24 11:00] VITALS: BP 138/76
--- NOTE | 2021-02-24 12:25 | EKG ---
[place] [address] ELECTROCARDIOGRAM REPORT Name: ANDREAS STALLINGS Room: [address] ADM IN M.R.#: [id number] Admission: 02/22/21 Attend Phys: Amie St, Discharge: Date of : 31 Date of Service: 02/22/21 1414 Report #: [id number] THIS REPORT FOR: //name// [facility] ED Test Date: 2021-02-22 Test Time: 14:14:55 Pat Name: ANDREAS STALLINGS Department: Room: [facility] Gender: F Sand Tester: JOANA : 1930 Requested By: Teresa Ingram Order Number: [id number] MD: Rashi Cooper Measurements Intervals [place] Rate: 71 P: 35 [place]: 173 QRS: 14 QRSD: 109 T: 40 QT: 417 QTc: 454 Interpretive Statements Sinus rhythm Low voltage, precordial leads Abnormal R-wave progression, early transition Minimal ST elevation, inferior leads Compared to ECG 01/15/2021 15:43:42 Low QRS voltage now present Atrial fibrillation no longer present ST (T wave) deviation still present Electronically Signed On 02-24-2021 12:25:23 CDT by Rashi Cooper [email or web address] <ELECTRONICALLY SIGNED> By: Dusty Cooper MD, [facility] 02/24/21 1225 1414 1414 Dusty Cooper MD, [facility] /EPI
[2021-02-24 20:00] VITALS: BP 126/68
[2021-02-24 23:43] VITALS: BP 129/69
[2021-02-25 03:52] LABS: HEMATOCRIT 36.6 % (37.0-47.0); HEMOGLOBIN 11.7 gm/dL (12.0-15.0); MCV 90.7 fL (80.0-100.0); MPV 7.8 fl. (7.2-11.1); RBC 4.03 mil/uL (4.20-5.00); RDW-CV 14.9 % (10.5-14.5); WBC 15.1 thou/uL (4.0-11.0)
[2021-02-25 04:05] LABS: ALBUMIN 2.6 g/dL (3.4-5.0); CALCIUM 9.1 mg/dL (8.5-10.1); CREATININE 1.6 mg/dL (0.6-1.3); MAGNESIUM 2.1 mg/dL (1.8-2.4); POTASSIUM 4.5 mmol/L (3.5-5.1); TOTAL BILIRUBIN 0.2 mg/dL (<0.1-1.0); TOTAL PROTEIN 6.3 g/dL (6.4-8.2)
[2021-02-25 09:00] VITALS: BP 136/68
[2021-02-25 17:08] VITALS: BP 118/59
[2021-02-25 20:10] VITALS: BP 126/63
[2021-02-26 00:46] VITALS: BP 165/71
[2021-02-26 04:43] LABS: HEMATOCRIT 35.5 % (37.0-47.0); HEMOGLOBIN 11.6 gm/dL (12.0-15.0); MCH 29.2 pg (26.0-34.0); MCHC 32.7 g/dL (28.0-37.0); MCV 89.3 fL (80.0-100.0); MPV 7.7 fl. (7.2-11.1); RBC 3.97 mil/uL (4.20-5.00); RDW-CV 14.7 % (10.5-14.5); WBC 10.3 thou/uL (4.0-11.0)
[2021-02-26 04:50] LABS: ALBUMIN 2.5 g/dL (3.4-5.0); CALCIUM 8.8 mg/dL (8.5-10.1); CREATININE 1.5 mg/dL (0.6-1.3); MAGNESIUM 2.2 mg/dL (1.8-2.4); POTASSIUM 4.7 mmol/L (3.5-5.1); TOTAL BILIRUBIN 0.2 mg/dL (<0.1-1.0); TOTAL PROTEIN 6.1 g/dL (6.4-8.2)
[2021-02-26] MEDS ORDERED: GABAPENTIN 100100 MG PO (09:22)
[2021-02-26] MEDS ORDERED: HYDROCODON-ACE1 EAC7 PO (09:22)
[2021-02-26] MEDS ORDERED: PREDNISONE 10 M10 M1 PO (09:22)
[2021-02-26] MEDS ORDERED: VOLTAREN GEL 1100 G1 TOP (09:22)
[2021-02-26 09:47] VITALS: BP 165/71
== END 2021-02-26 18:38 | disposition home health service (06) | DRG 552 ==
LOC: M.ERS 11:04 → M.TBA-ER 14:39 → M.2W 14:39 → M.ORTHSURG 02-26 08:48
PROVIDERS: Physician Assistant; ADMIT Internal Medicine; ATTEND Internal Medicine
DX: M48.061 Spinal stenosis, lumbar region without neurogenic claudication (principal); N17.9 Acute kidney failure, unspecified; E44.1 Mild protein-calorie malnutrition; N39.0 Urinary tract infection, site not specified; M51.36 Other intervertebral disc degeneration, lumbar region; I49.5 Sick sinus syndrome; E78.5 Hyperlipidemia, unspecified; I25.10 Atherosclerotic heart disease of native coronary artery without angina pectoris; M16.10 Unilateral primary osteoarthritis, unspecified hip; D72.829 Elevated white blood cell count, unspecified; T38.0X5A Adverse effect of glucocorticoids and synthetic analogues, initial encounter; Z68.32 Body mass index [BMI] 32.0-32.9, adult; Z20.822 Contact with and (suspected) exposure to COVID-19; N18.30 Chronic kidney disease, stage 3 unspecified; Z96.653 Presence of artificial knee joint, bilateral; Y92.89 Other specified places as the place of occurrence of the external cause; Z86.718 Personal history of other venous thrombosis and embolism; Z95.0 Presence of cardiac pacemaker; Z79.01 Long term (current) use of anticoagulants; Z79.899 Other long term (current) drug therapy; Z88.8 Allergy status to other drugs, medicaments and biological substances; Z91.013 Allergy to seafood; Z90.49 Acquired absence of other specified parts of digestive tract; Z93.3 Colostomy status; Z98.49 Cataract extraction status, unspecified eye; Z85.828 Personal history of other malignant neoplasm of skin; Z86.73 Personal history of transient ischemic attack (TIA), and cerebral infarction without residual deficits

== ENCOUNTER 2021-04-05 18:40 | Emergency (ER) | payer MEDICARE, OTHER ==
[~2021-04-05] VITALS: Ht 162.6 cm; Wt 65.8 kg
[~2021-04-05 18:40] MED LIST changes: +PREDNISONE 10 M10 M1 PO; +RAYOS5 MG PO; +SYNTHROID25 MC1 PO; +VOLTAREN GEL 1100 G1 TOP
[2021-04-05 20:38] VITALS: BP 190/81
== END 2021-04-05 20:39 | disposition home or self-care (01) ==
LOC: M.ERS 18:40
DX: S16.1XXA Strain of muscle, fascia and tendon at neck level, initial encounter (principal); S80.01XA Contusion of right knee, initial encounter; S05.11XA Contusion of eyeball and orbital tissues, right eye, initial encounter; S09.8XXA Other specified injuries of head, initial encounter; E78.5 Hyperlipidemia, unspecified; I10 Essential (primary) hypertension; M19.90 Unspecified osteoarthritis, unspecified site; G89.29 Other chronic pain; I25.10 Atherosclerotic heart disease of native coronary artery without angina pectoris; Z86.718 Personal history of other venous thrombosis and embolism; Z96.653 Presence of artificial knee joint, bilateral; Z87.440 Personal history of urinary (tract) infections; W18.39XA Other fall on same level, initial encounter; Y93.89 Activity, other specified; Y92.481 Parking lot as the place of occurrence of the external cause; Y99.8 Other external cause status; M25.551 Pain in right hip

== ENCOUNTER → 2021-04-15 | Outpatient (CLI) | payer MEDICARE, OTHER ==
[2021-04-15 14:06] LABS: CALCIUM 9.3 mg/dL (8.5-10.1); CREATININE 1.5 mg/dL (0.6-1.3); POTASSIUM 3.9 mmol/L (3.5-5.1)
== END ==
LOC: M.LAB 13:32 → M.RAD 14:00 → M.LAB 14:00
PROVIDERS: ATTEND Orthopaedic Surgery Orthopaedic Surgery of the Spine
DX: M81.0 Age-related osteoporosis without current pathological fracture (principal); M48.02 Spinal stenosis, cervical region; Z87.81 Personal history of (healed) traumatic fracture

== ENCOUNTER → 2021-04-24 | Outpatient (CLI) | payer MEDICARE, OTHER | LOC: M.RAD 04-16 09:00 | PROVIDERS: ATTEND Orthopaedic Surgery Orthopaedic Surgery of the Spine | DX: M54.5 Low back pain (principal); M48.061 Spinal stenosis, lumbar region without neurogenic claudication; M51.36 Other intervertebral disc degeneration, lumbar region; M50.30 Other cervical disc degeneration, unspecified cervical region; Z98.890 Other specified postprocedural states; Z79.899 Other long term (current) drug therapy; Z91.040 Latex allergy status; Z79.01 Long term (current) use of anticoagulants ==

== ENCOUNTER → 2021-08-23 | Outpatient (CLI) | payer MEDICARE, OTHER ==
[~2021-08-23] MED LIST changes: +ASA81BEC PO; +MYRBETRIQ25 MG PO; +ROSUVASTATIN CA10 MG PO
== END ==
LOC: M.WC 10:00
PROVIDERS: ATTEND Family Medicine
DX: L89.892 Pressure ulcer of other site, stage 2 (principal); M70.971 Unspecified soft tissue disorder related to use, overuse and pressure, right ankle and foot; M21.611 Bunion of right foot; L84 Corns and callosities; E03.9 Hypothyroidism, unspecified; E78.5 Hyperlipidemia, unspecified; I25.10 Atherosclerotic heart disease of native coronary artery without angina pectoris; M48.00 Spinal stenosis, site unspecified; M06.9 Rheumatoid arthritis, unspecified; M81.0 Age-related osteoporosis without current pathological fracture; Z86.718 Personal history of other venous thrombosis and embolism; Z79.82 Long term (current) use of aspirin; Z79.899 Other long term (current) drug therapy; Z95.0 Presence of cardiac pacemaker

== ENCOUNTER 2021-08-24 12:02 | Inpatient (IN) | payer MEDICARE, OTHER ==
[~2021-08-24] VITALS: Ht 162.6 cm; Wt 78.9 kg
[~2021-08-24 12:02] MED LIST changes: -ASA81BEC PO; -MYRBETRIQ25 MG PO; -ROSUVASTATIN CA10 MG PO
[2021-08-24 12:05] VITALS: BP 145/81
[2021-08-24] MEDS ORDERED: ASA81BEC PO (12:12)
[2021-08-24] MEDS ORDERED: MYRBETRIQ25 MG PO (12:12)
[2021-08-24] MEDS ORDERED: ROSUVASTATIN CA10 MG PO (12:13)
[2021-08-24 13:11] LABS: ABSOLUTE BASOPHILS 0.1 thou/uL (0.0-0.2); ABSOLUTE EOSINOPHILS 0.2 thou/uL (0.0-0.7); ABSOLUTE LYMPHOCYTES 1.8 thou/uL (0.8-5.3); ABSOLUTE MONOCYTES 1.1 thou/uL (0.0-1.2); ABSOLUTE NEUTROPHILS 7.4 thou/uL (1.6-8.1); BASOPHILS 0.7 %; EOSINOPHILS 1.9 %; HEMATOCRIT 44.1 % (37.0-47.0); HEMOGLOBIN 14.1 gm/dL (12.0-15.0); MCH 29.3 pg (26.0-34.0); MCV 91.6 fL (80.0-100.0); MONOCYTES 10.2 %; MPV 7.1 fl. (7.2-11.1); NUCLEATED RBCS 0 /100WBC; PLATELET COUNT* 188 thou/uL (150-400); POLYS 70.2 %; RBC 4.81 mil/uL (4.20-5.00); RDW-CV 17.4 % (10.5-14.5); WBC 10.5 thou/uL (4.0-11.0)
[2021-08-24 13:34] LABS: CALCIUM 8.5 mg/dL (8.5-10.1); CREATININE 1.7 mg/dL (0.6-1.3)
[2021-08-24 13:44] LABS: ALBUMIN 2.7 g/dL (3.4-5.0); TOTAL PROTEIN 6.7 g/dL (6.4-8.2)
[2021-08-24 13:45] LABS: URINE BILIRUBIN NEGATIVE (Negative); URINE BLOOD 1+ (Negative); URINE CLARITY CLEAR; URINE COLOR YELLOW; URINE GLUCOSE-RANDOM NEGATIVE (Negative); URINE KETONES TRACE (Negative); URINE LEUKOCYTES-REFLEX TRACE (Negative); URINE NITRITE-REFLEX NEGATIVE (Negative); URINE PROTEIN 1+ (Negative); URINE SPECIFIC GRAVITY >= 1.030 (1.005-1.030); URINE UROBILINOGEN 0.2 E.U./dl (0.2-1.0)
[2021-08-24 14:01] LABS: SQUAMOUS 0-3 Few /LPF (0-3)
[2021-08-24 14:02] LABS: BACTERIA-REFLEX >30 Many /HPF (None Seen); CASTS None Seen /LPF (None Seen); CRYSTALS None Seen /LPF (None Seen); MUCUS None Seen strn/LPF (None Seen); URINE RBC 3-10 Few /HPF (0-2); URINE WBC-REFLEX 0-5 Rare /HPF (0-5)
[2021-08-24 16:45] VITALS: BP 137/65
[2021-08-24 17:45] VITALS: BP 147/66
[2021-08-24 19:45] VITALS: BP 144/60
--- NOTE | 2021-08-24 19:48 | NUR ---
PT WAS ADMITTED THROUGH THE ER FOR WEAKNESS, FALLS AND KIDNEY FAILURE. PT OREINTED TO ROOM AND STAFF. PT GIVEN HER DINNER TO EAT. PT COMPLAINED OF BEING COLD BUT FEVER WAS DOWN TO 99.3 PT HAS SALINE LOCK IN HER LAC WITH NORMAL SALINE INFUSING WELL. WILL CONTINUE TO MONITOR PLAN OF CARE.
--- NOTE | 2021-08-25 04:32 | NUR ---
PT A&O X 4. VSS ON RA. AFEBRILE. MEDS GIVEN ORDERED. C/O GENERALIZED PAIN, TYLENOL GIVEN. PT INCONTINENT OF BLADDER. COLOSTOMY BAG IN PLACE WITH MINIMUM OUTPUT. IVF INFUISING. BED ALARM ON FOR SAFETY. WILL CONTINUE TO MONITOR.
[2021-08-25 04:42] LABS: HEMATOCRIT 39.1 % (37.0-47.0); HEMOGLOBIN 12.9 gm/dL (12.0-15.0); MCH 29.2 pg (26.0-34.0); MCHC 33.1 g/dL (28.0-37.0); MCV 88.3 fL (80.0-100.0); MPV 7.3 fl. (7.2-11.1); RBC 4.43 mil/uL (4.20-5.00); RDW-CV 17.1 % (10.5-14.5); WBC 9.2 thou/uL (4.0-11.0)
[2021-08-25 05:09] LABS: CALCIUM 7.9 mg/dL (8.5-10.1); CREATININE 1.4 mg/dL (0.6-1.3); POTASSIUM 3.7 mmol/L (3.5-5.1)
[2021-08-25 08:20] VITALS: BP 135/64
--- NOTE | 2021-08-25 10:18 | EKG ---
[place] [address] ELECTROCARDIOGRAM REPORT Name: ANDREAS STALLINGS Room: [address] ADM [place] .R.#: [id number] Admission: 08/24/21 Attend Phys: Jerome Jeong Discharge: Date of : 32 Date of Service: 08/24/21 1217 Report #: [id number] THIS REPORT FOR: //name// [facility] ED Test Date: 2021-08-24 Test Time: 12:17:18 Pat Name: ANDREAS STALLINGS Department: Room: [facility] Gender: F Concrete Carpenter: HOLLY : 1930 Requested By: Luis Lake Order Number: [id number] MD: Mike Rawls Measurements Intervals [place] Rate: 99 P: 30 [place]: 153 QRS: -8 QRSD: 81 T: 41 QT: 328 QTc: 421 Interpretive Statements Sinus rhythm artifact noted Low voltage, precordial leads Abnormal R-wave progression, early transition Compared to ECG 02/22/2021 14:14:55 no change Electronically Signed On 08-25-2021 10:17:59 CDT by Mike Rawls [email or web address] <ELECTRONICALLY SIGNED> By: Mike Rawls MD, FACC 08/25/21 1017 16 16 Mike Rawls MD, FACC /EPI
[2021-08-25 15:50] VITALS: BP 112/54
--- NOTE | 2021-08-25 17:26 | NUR ---
PT ON BED REST. PT ON RM . PT HAS LT AC IV . PT HAS WOUND ON RT GREAT TOE, PICTURES TAKEN AND PUT IN CHART AND CLEAN DRESSING ON TOE. PT IS INNC. OF BLADDER. PT HAS ILEOSTOMY. PT STATES SHE ALREADY HAD FLU SHOT. PT HAS EATEN ALOT TODAY AND STATES SHE FEELS BETTER. PT IS SITTING IN BED WATCHING TV WITH CALL LIGHT IN REACH.
[2021-08-25 19:45] VITALS: BP 145/56
[2021-08-26 04:19] LABS: HEMATOCRIT 36.6 % (37.0-47.0); HEMOGLOBIN 12.2 gm/dL (12.0-15.0); MCH 29.7 pg (26.0-34.0); MCHC 33.4 g/dL (28.0-37.0); MCV 88.8 fL (80.0-100.0); RBC 4.12 mil/uL (4.20-5.00); WBC 8.7 thou/uL (4.0-11.0)
[2021-08-26 04:30] LABS: CALCIUM 7.9 mg/dL (8.5-10.1); CREATININE 1.4 mg/dL (0.6-1.3); POTASSIUM 3.8 mmol/L (3.5-5.1)
--- NOTE | 2021-08-26 04:35 | NUR ---
PT A&O X 4. ON RA. MEDS GIVEN ORDERED. NO C/O PAIN. PT INCONTINENT OF BLADDER AT TIMES. COLOSTOMY BAG IN PLACE, MODERATE OUTPUT. IVF INFUISING. CALL LIGHT WITHIN REACH. WILL CONTINUE TO MONITOR.
[2021-08-26 08:00] VITALS: BP 130/65
[2021-08-26 16:02] VITALS: BP 135/62
--- NOTE | 2021-08-26 16:15 | NUR ---
CM COMPLETED AN ASSESSMENT WITH PT AND HER SISTER WHO WAS AT BEDSIDE. PT AND SISTER LIVE TOGETHER. PT WAS INDEPENDENT WITH CARE AND ABLE TO AMBULATE WITH A WALKER PRIOR TO HOSPITALIZATION. PT STATED SHE WOKE UP ONE MORE AND COULDNT MOVE HER ARMS OR LEGS. PT HAS HX WITH [facility]. PT/OT EVALS NEEDED.
--- NOTE | 2021-08-26 17:45 | NUR ---
PATIENT RESTING IN BED, SISTER AT BEDSIDE, INVOLVED WITH CARES. ALERT AND ORIENTED X4. IV TO LEFT BURNS INFUSING NORMAL SALINE AT 100MLS/HR. COLOSTOMY TO LEFT LOWER ABDOMEN, DRAINING WITHOUT DIFFICULTIES. BED IN LOW/LOCKED POSITION. CALL LIGHT WITHIN REACH. BED ALARM ON. ALL QUESTIONS AND CONCERNS ADDRESSED.
[2021-08-26 20:56] VITALS: BP 130/63
--- NOTE | 2021-08-27 05:01 | NUR ---
I HAD TO WAKE PT UP TO ASSESS, SHE SLEPT THE REST OF THE SHIFT. NO REPORTS OF ANY PAIN OR DISCOMFORT. SHE WAS ABLE TO TAKE HER MEDS SCHEDULED. STILL WEAK, ALERT BUT FORGETFUL. INCONTINENT OF URINE, USES CALL LIGHT APPROPRIATELY. SKIN HAS GENERALIZED BRUISING IN UPPER EXTREMETIES BUT NO OPEN WOUNDS. COLOSTOMY INTACT, EMPTIED THIS SHIFT. IMPROVEMENT IN WEAKNESS AND LABS PENDING. WILL CONTINUE TO MONITOR.
[2021-08-27 06:30] LABS: HEMATOCRIT 33.2 % (37.0-47.0); HEMOGLOBIN 11.2 gm/dL (12.0-15.0); MCH 28.8 pg (26.0-34.0); MCHC 33.6 g/dL (28.0-37.0); MCV 85.9 fL (80.0-100.0); MPV 7.3 fl. (7.2-11.1); RBC 3.87 mil/uL (4.20-5.00); WBC 6.5 thou/uL (4.0-11.0)
[2021-08-27 06:34] LABS: CALCIUM 7.6 mg/dL (8.5-10.1); CREATININE 1.2 mg/dL (0.6-1.3); POTASSIUM 3.6 mmol/L (3.5-5.1)
[2021-08-27 08:00] VITALS: BP 113/53
--- NOTE | 2021-08-27 12:27 | NUR ---
Case and plan of care reviewed with physician each weekday during patient's length of stay. Plan is for Discharge today to [facility] facility. Spoke to Pt and sister she lives with in the room. Sister would like pt to stay in [place] if possible. Choices for SNF reviewed with both, [facility]. Left VM with [facility] for bed availability. Referral faxed. [phone]
[2021-08-27 15:58] VITALS: BP 157/64
--- NOTE | 2021-08-27 18:12 | NUR ---
pt dicharged with all belongings accompanied by her sister and the travel agency. vss afebrile. saline lock rem,karol from her gillespie. pt discharged to [facility] for senior care and therapy.
== END 2021-08-27 18:15 | DRG 689 ==
LOC: M.ERS 12:02 → M.TBA-ER 14:16 → M.3W 14:16
PROVIDERS: Emergency Medicine Emergency Medical Services; Family Medicine; ADMIT Internal Medicine; ATTEND Internal Medicine
DX: N39.0 Urinary tract infection, site not specified (principal); N17.0 Acute kidney failure with tubular necrosis; B96.89 Other specified bacterial agents as the cause of diseases classified elsewhere; E78.5 Hyperlipidemia, unspecified; I25.10 Atherosclerotic heart disease of native coronary artery without angina pectoris; Z86.718 Personal history of other venous thrombosis and embolism; Z79.01 Long term (current) use of anticoagulants; E66.9 Obesity, unspecified; Z68.29 Body mass index [BMI] 29.0-29.9, adult; M06.9 Rheumatoid arthritis, unspecified; Z88.8 Allergy status to other drugs, medicaments and biological substances; Z95.0 Presence of cardiac pacemaker; Z20.822 Contact with and (suspected) exposure to COVID-19; M48.061 Spinal stenosis, lumbar region without neurogenic claudication; E03.9 Hypothyroidism, unspecified

== ENCOUNTER → 2021-09-13 | Outpatient (CLI) | payer MEDICARE, OTHER ==
[~2021-09-13] MED LIST changes: +ASA81BEC PO; +MYRBETRIQ25 MG PO; +ROSUVASTATIN CA10 MG PO
== END ==
LOC: M.WC 09:13
PROVIDERS: ATTEND Family Medicine
DX: L89.892 Pressure ulcer of other site, stage 2 (principal); S81.801A Unspecified open wound, right lower leg, initial encounter; L84 Corns and callosities; M70.971 Unspecified soft tissue disorder related to use, overuse and pressure, right ankle and foot; M21.611 Bunion of right foot; E03.9 Hypothyroidism, unspecified; E78.5 Hyperlipidemia, unspecified; I25.10 Atherosclerotic heart disease of native coronary artery without angina pectoris; M48.00 Spinal stenosis, site unspecified; M06.9 Rheumatoid arthritis, unspecified; M81.0 Age-related osteoporosis without current pathological fracture; Z86.718 Personal history of other venous thrombosis and embolism; Z79.82 Long term (current) use of aspirin; Z79.899 Other long term (current) drug therapy; X58.XXXA Exposure to other specified factors, initial encounter; Y93.89 Activity, other specified; Y92.89 Other specified places as the place of occurrence of the external cause; Y99.8 Other external cause status